=== PATIENT | female | born 1965 | race Caucasian/White ===

== ENCOUNTER → 2025-01-28 10:48 | Outpatient (CLI) | payer OTHER, SELFPAY ==
--- NOTE | 2025-01-28 10:52 | DI.CT.S_ITS ---
PROCEDURE: CT CERVICAL SPINE WO CON INDICATIONS: CERVICAL RADICULOPATHY TECHNIQUE: Noncontrast 3 mm thick sections acquired from the skull base to the T4 level. Sagittal and coronal reformats were then constructed. For radiation dose reduction, the following was used: automated exposure control, adjustment of mA and/or kV according to patient size. COMPARISON: [facility], MR, MR CERVICAL SPINE WITHOUT CONTRAST, 10/21/2024, 14:07. [facility], CR, XR CERVICAL SPINE WITH FLEXION EXTENSION, 01/13/2025, 8:25. FINDINGS: Image quality: Diagnostic Bones: Anterior fusion construct with interbody spacers spanning C4-C6, overall similar to prior. More significant disc space height loss and trace anterolisthesis is seen from C6-C7, below the fusion construct. No acute displaced fracture or new subluxation elsewhere. Posterior ligament ossification particularly noted at C3-C4. 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 Partially seen mandible hardware. Soft tissues: No apical pneumothorax. IMPRESSION: Similar, expected appearance of the anterior fusion construct from C4-C6 with interbody spacers. More focal degenerative changes are seen above and below the hardware, with disc space height loss and anterolisthesis at C6-C7 and posterior ligament calcifications at C3-C4. Dictated by: Silvano York M.D. on 01/28/2025 at 12:10 Approved by: Silvano York M.D. on 01/28/2025 at 12:14
== END ==
PROVIDERS: PCP Registered Nurse; Referring Provider Orthopaedic Surgery Orthopaedic Surgery of the Spine; Visit Provider Orthopaedic Surgery Orthopaedic Surgery of the Spine
DX: M54.12 Radiculopathy, cervical region (principal); Z98.1 Arthrodesis status; M43.12 Spondylolisthesis, cervical region
CPT/HCPCS: 72125

== ENCOUNTER → 2025-02-03 12:45 | Outpatient (CLI) | payer OTHER, SELFPAY ==
--- NOTE | 2025-02-03 12:46 | DI.MRI.S_ITS ---
PROCEDURE: MR THORACIC SPINE WO CON INDICATIONS: balance disorder TECHNIQUE: Noncontrast sagittal T1 spine echo and T2 fast spin echo, sagittal STIR, and T2 fast spin echo through the thoracic spine. COMPARISON: None. FINDINGS: Image quality: Excellent. Partially visualized cervical spinal hardware. Alignment and Curvature: There is normal bony alignment. Bone Marrow: Marrow is of normal overall signal. Stippled predominantly T1 and T2 hyperintense lesion in the T10 vertebral body consistent with an intraosseous venous malformation (hemangioma). Additional lesion in the L1 vertebral body with T2 hyperintensity and mild T1 hypointensity, is favored to reflect an atypical hemangioma, although is indeterminate. No suspicious features such as cortical breakthrough are seen. No acute vertebral body compression fractures. Spinal Cord: Visualized spinal cord is normal in size and signal. Paraspinous Soft Tissues: No paravertebral masses. Miscellaneous: On axial images, central canal and foramina appear widely patent at all scanned levels. IMPRESSION: 1. No spinal canal or neural foraminal stenosis in the thoracic spine. 2. 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 Dictated by: Moises Weiner M.D. on 02/04/2025 at 17:57 Approved by: Moises Weiner M.D. on 02/04/2025 at 18:04
== END ==
LOC: MRI 12:46
PROVIDERS: Family Provider Registered Nurse; PCP Registered Nurse; Referring Provider Naturopath; Visit Provider Naturopath
DX: M89.9 Disorder of bone, unspecified (principal); R26.89 Other abnormalities of gait and mobility
CPT/HCPCS: 72146

== ENCOUNTER → 2025-03-02 17:28 | Outpatient (CLI) | payer OTHER, SELFPAY ==
--- NOTE | 2025-03-02 17:29 | DI.MRI.S_ITS ---
PROCEDURE: MR HEAD/BRAIN WO/W CON INDICATIONS: difficulty with balance TECHNIQUE: Noncontrast axial T1 spin echo, axial T2 fast spin echo, sagittal and axial FLAIR, coronal T2 fast spin echo, axial gradient echo, axial diffusion and ADC through the brain. After the administration of contrast, axial and coronal and sagittal 3D VIBE or T1 spin echo with fat saturation through the brain. COMPARISON: None. FINDINGS: Image quality: Excellent. CSF Spaces: Basal cisterns are patent. No extra-axial fluid collections. Ventricles are normal in size and shape. Brain: No midline shift. No intracranial bleeds or masses. No abnormal intracranial enhancement. The brainstem appears normal. Diffusion-weighted images demonstrate no acute infarct. No chronic ischemic insults. Normal intravascular flow voids are present. Skull and face: Right parietal scalp lesion measuring 1.4 cm, possible epidermal inclusion cyst. Calvarial marrow is normal in signal. Orbits appear normal. Sinuses: Sinuses and mastoids appear clear. IMPRESSION: No acute intracranial abnormalities or abnormal intracranial enhancement. Likely right parietal scalp epidermal inclusion cyst measuring 1.4 cm. Dictated by: Joey Watkins M.D. on 03/03/2025 at 11:53 Approved by: Joey Watkins M.D. on 03/03/2025 at 12:16
== END ==
LOC: MRI 17:29
PROVIDERS: Family Provider Registered Nurse; PCP Registered Nurse; Referring Provider Student in an Organized Health Care Education/Training Program; Visit Provider Student in an Organized Health Care Education/Training Program
DX: R26.89 Other abnormalities of gait and mobility (principal)
CPT/HCPCS: 70553; 95886; 95913; A9579